=== PATIENT | female | born 1965 | race Caucasian/White ===

== ENCOUNTER 2022-08-22 08:25 | Outpatient (CLI) | payer OTHER, SELFPAY | END 2022-08-22 08:26 | disposition home or self-care (01) | LOC: NFLDREF 08-23 06:14 | PROVIDERS: PCP Family Medicine; Referring Provider Family Medicine; Visit Provider Family Medicine | DX: R03.0 Elevated blood-pressure reading, without diagnosis of hypertension (principal); Z13.6 Encounter for screening for cardiovascular disorders | CPT/HCPCS: 80053; 80061; 82043; 82570 ==

== ENCOUNTER 2022-11-29 09:41 | Outpatient (CLI) | payer OTHER, SELFPAY | END 2022-11-29 09:42 | disposition home or self-care (01) | LOC: NFLDREF 11-30 14:30 | PROVIDERS: PCP Family Medicine; Referring Provider Family Medicine; Visit Provider Nurse Practitioner Family | DX: E78.00 Pure hypercholesterolemia, unspecified (principal); Z79.899 Other long term (current) drug therapy; F41.9 Anxiety disorder, unspecified; F32.9 Major depressive disorder, single episode, unspecified; F42.9 Obsessive-compulsive disorder, unspecified; F32.A Depression, unspecified; F41.0 Panic disorder [episodic paroxysmal anxiety]; G47.00 Insomnia, unspecified; R45.851 Suicidal ideations | CPT/HCPCS: 82306; 84443 ==

== ENCOUNTER 2022-12-27 08:45 | Outpatient (CLI) | payer OTHER, SELFPAY | END 2022-12-27 08:46 | disposition home or self-care (01) | LOC: NFLDREF 18:36 | PROVIDERS: PCP Family Medicine; Referring Provider Family Medicine; Visit Provider Family Medicine | DX: E78.00 Pure hypercholesterolemia, unspecified (principal) | CPT/HCPCS: 80061 ==

== ENCOUNTER 2023-10-04 08:50 | Outpatient (CLI) | payer OTHER, SELFPAY | END 2023-10-04 08:51 | disposition home or self-care (01) | LOC: LKVREF 08:51 | PROVIDERS: PCP Family Medicine; Visit Provider Family Medicine | DX: Z01.818 Encounter for other preprocedural examination (principal) | CPT/HCPCS: 80048 ==

== ENCOUNTER 2024-02-28 12:37 | Outpatient (CLI) | payer OTHER, SELFPAY ==
--- NOTE | 2024-02-28 13:00 | CRLHL7_ITS ---
For Patients: As a result of the Century Cures Act, medical imaging exams and procedure reports are released immediately into your electronic medical record. You may view this report before your referring provider. If you have questions, please contact your health care provider. INDICATION: Abdominal distention. COMPARISON: None. TECHNIQUE: Transvaginal pelvic ultrasound. FINDINGS: The uterus measures 6.1 x 2.7 x 3.9 cm. The endometrial stripe measures 2 mm in thickness with homogeneous echotexture. Trace fluid identified within the endometrial cavity. The right ovary measures 2.5 x 0.9 x 1.1 cm. Normal blood flow to the right ovary. Patient had the left ovary removed. No free fluid identified in the pelvic cul-de-sac. IMPRESSION: 1. Trace fluid identified within the endometrial cavity. 2. Left ovary is absent from previous surgery. 3. Normal trans vaginal pelvic ultrasound otherwise. Dictated by Sunni Wang MD @ 03/02/2024 11:59:12 AM (Electronically Signed)
== END 2024-02-28 12:38 | disposition home or self-care (01) ==
PROVIDERS: Visit Provider Physician Assistant
DX: R14.0 Abdominal distension (gaseous) (principal)
CPT/HCPCS: 76830

== ENCOUNTER 2024-05-25 12:26 | Outpatient (CLI) | payer OTHER, SELFPAY | END 2024-05-25 12:27 | disposition home or self-care (01) | LOC: NFLDREF 12:27 | PROVIDERS: Visit Provider Registered Nurse | DX: Z13.228 Encounter for screening for other metabolic disorders (principal) | CPT/HCPCS: 80048 ==

== ENCOUNTER 2024-05-26 06:06 | Day surgery (SDC) | payer OTHER, SELFPAY ==
[2024-05-26] VITALS (24 sets, daily range): BP systolic 66–138; BP diastolic 40–80; PULSE 48–96; RESP 11–20; TEMP 35.5–37.3; O2SAT 92–99; BMI 25.4
[2024-05-26 06:42] LABS: Hemoglobin* 12.3 gm/dL (12.0-16.0)
[2024-05-26] MEDS: SODIUM CHLORIDE 0.9 % (FLUSH) 10 ML SYRINGE IVF (06:56)
[2024-05-26] MEDS: LACTATED RINGERS 1000 ML 1,000 ML 100 ML IV (06:56)
--- NOTE | 2024-05-26 07:07 | W.PM.H&PU ---
History & Physical Update History & Physical Update H&P Reviewed and patient assessed: No changes noted
--- NOTE | 2024-05-26 07:28 | PM.PROC ---
Procedure Note Date Seen: 05/26/24 Date of procedure: 05/26/24 Will [facility] bill your pro fee for this procedure?: Yes Procedure: Preoperative diagnosis: 59-year-old 1 para 1 with 1. Pelvic organ prolapse who desires surgical treatment. 2. Mixed urinary incontinence Postoperative diagnosis: Same Procedure: Total vaginal hysterectomy, Right salpingo-oophorectomy, anterior and posterior repair. Plummer's culdoplasty. Transobturator, suburethral sling placement. Diagnostic Cystoscopy. Anesthesia: Spinal, Local Surgeon: Ro Marshall MD under water assistant: Yamilka Hernandez MD Second nursing home assistant administrator: CYRIL Soriano EBL: 50 mL IV Fluid: 900 mL Urine output: 250 mL, clear urine at the end of the procedure. Drains: Rubi to gravity: Clear urine at the end of the procedure., Vaginal pack in place Specimen: Uterus with cervix [tubes and ovaries] to pathology Findings: On exam under anesthesia: Uterus is mid position, <8 week size. Prolapse: Grade 3 cystocele, grade 2 uterine prolapse, grade 2 rectocele primarily with in the vaginal canal. The perineal body is well supported. Other: Left tube and ovary were surgically absent. Right tube and ovary appeared normal. Procedure: Shameka was taken to the operating room where general anesthesia was found be adequate. She is placed in the dorsal lithotomy position and an exam under anesthesia performed with the findings stated above. She was then prepped and draped in a sterile manner. A Rubi catheter was placed. A weighted speculum was placed in the posterior aspect of the vaginal introitus. The cervix was grasped with 2 double toothed-toothed tenaculums and the cervix circumferentially injected dilute vasopressin, 20 units diluted in 50 mL of saline. A circumferential incision was made around the cervix with a scalpel. The anterior vaginal mucosa was grasped with an Allis clamp and the anterior cul-de-sac formed with Metzenbaum scissors. The peritoneum was grasped an with toothed forceps and the peritoneum entered sharply with Metzenbaum scissors. This opening was extended with blunt pressure and a Pavithra retractor placed through the opening. The posterior cul-de-sac was entered sharply with Garcia scissors and a long weighted speculum was placed. Pedicles of the hysterectomy were formed using Ginger clamps. All pedicles were Ginger transfixed. The 1st pedicle was formed on the patient's left incorporating the uterosacral ligament. This was divided and Ivan transfixed. These sutures were tagged with a small clamp. The right uterosacral ligament was grasped in the 1st right pedicle that pedicle was divided, Ginger transfixed in the sutures held with a small Nickie clamp. Sequential pedicles were then formed using Ivan clamps, all pedicles were divided sharply and Ginger transfixed. At the level of the cornea at the utero ovarian ligament ligament were cross-clamped with a Ivan clamp and divided. The cornual pedicles were doubly suture ligated: 1st with an 0 Vicryl free tie followed by an 0 Vicryl stick tie in a fore and aft manner. All pedicles were noted to be hemostatic. The right ovary was grasped with a Snyder clamp. The ovary was removed from the infundibulopelvic ligament with the LigaSure dissecting forceps. The right fallopian tube was then grasped with a Snyder clamp and removed from the underlying mesosalpinx with the LigaSure forceps. Excellent hemostasis was noted. A Plummer's culdoplasty was performed. The long weighted speculum was removed and the short weighted speculum replaced in the vaginal introitus. The peritoneum was identified circumferentially and grasped with 2 Allis clamps. The weighted speculum removed. The vaginal cuff was re-approximated using 0 Vicryl sutures in a figure of X manner. The uterosacral pedicles were incorporated into each apex of the vaginal cuff. Excellent hemostasis was noted. Attention was turned to performing the anterior repair. Allis clamp was placed in the midline of the anterior vaginal mucosa approximately 1 cm under the urethral meatus. Two additional Allis clamps were placed 1 just superior to each apex of the vaginal cuff repair. 1% lidocaine with epinephrine was injected between the 2 Allis clamps just above the cuff and in the midline to the Allis that was placed below the urethral meatus. A horizontal incision was then made between the 2 Allis clamps just above the vaginal cuff. Is vaginal mucosa was undermined with the Metzenbaum scissors. The excess mucosa was grasped with a combination of Tenorio and Allis clamps. The underlying fascial tissue was mobilized from the vaginal mucosa using an open Ray-Alina sponge. Two 0 Vicryl interrupted sutures were used to grasp the lateral vaginal fascial tissue and tied together in the midline. The excess vaginal mucosa was then removed and the remaining vertical incision was re-approximated using 3-0 Vicryl in a running locked manner. Excellent hemostasis verified. Attention was turned to performing the posterior repair. An Allis clamp was placed at the apex of the posterior repair in the midline of the vaginal mucosa posteriorly, 2 Allis clamps were placed in the posterior introitus approximately 1 cm within the introitus. 1% lidocaine with epinephrine was instilled between the 2 horizontal clamps and in the midline to the apical clamp. A horizontal incision was made between the 2 most proximal Allis clamps and a horizontal midline incision was made from the apex clamp to the midline horizontal incision. The vaginal mucosa was then undermined with Metzenbaum scissors and the vaginal fascia was mobilized from the mucosa using a Ray-Alina sponge. The lateral vaginal fascia was then reapproximated using 2 0 Vicryl interrupted sutures. The excess mucosal tissue was removed and the remaining incision reapproximated using 3-0 Vicryl in a running locked manner. Hemostasis verified. Attention was turned to performing the suburethral sling placement. The patient was placed in high Ghotra's position for the sling placement. A weighted speculum was placed in the posterior vaginal introitus. A marker was used to place mendez in the groin folds at the level of the clitoris. 1% lidocaine with epinephrine was injected into both the groin fold incision sites and the anterior aspect of the vaginal canal at the mid urethral junction. Two punch incisions were made at each of the groin fold sites. A 2 cm it vertical incision was made anterior aspect of the vaginal canal just below the mid urethral junction. The right Sarah trocar was then advanced through the right groin incision and the right side of the sling was attached to the trocar and the trocar reverse through the incision to pull the sling through. The left trocar was then placed in the left side of the sling then pulled through in a similar manner. The Rubi catheter was briefly removed for diagnostic cystoscopy with the above finding stated. A 9. Cervical dilator was placed between the sling and the vaginal canal and the sling pulled tight. The trocars were then removed using a scissors, the plastic overlying the sling was removed and the sling cut to below the groin fold skin incisions. Exofin adhesive gel was applied to the groin fold incisions. The vaginal incision was repaired using 2-0 Vicryl in a running locked manner. The speculum was removed. A vaginal pack with Premarin cream was placed in the vaginal canal to be removed tomorrow morning by the physician. Sponge, lap and instrument counts were correct x2 at the end of the procedure and the patient was taken to the recovery room in stable condition. Prior to the procedure the patient received: 2g IV Ancef for antibiotic prophylaxis Pathology: specimen obtained, sent to pathology
[2024-05-26] MEDS: CEFAZOLIN 2 GM INJ IVP (07:54)
[2024-05-26] MEDS: LIDOCAINE 1%-EPI 1:100,000 20 ML INFILTRATI ×3 (08:17→09:20)
[2024-05-26] MEDS: 0.9 % SODIUM CHLORIDE 50 ml INJECTION (08:17)
[2024-05-26] MEDS: VASOPRESSIN 20 UNIT/ML INJ INJECTION (08:19)
--- NOTE | 2024-05-26 08:51 | W.ANESCHARGE ---
Anesthesia Charges Start Date/Time Anesthesia Start Date: 05/26/24 Anesthesia Start Time: 07:29 Stop Date/Time Anesthesia Stop Date: 05/26/24 Anesthesia Stop Time: 09:50
[2024-05-26] MEDS: ESTROGENS, CONJUGATED VAGINAL 0.625 MG/G CREAM 1 APPLIC VAGINAL (09:10)
[2024-05-26] MEDS: KETOROLAC 30 MG/ML inj IVP ×3 (09:45→21:46)
[2024-05-26] MEDS: ONDANSETRON 2 MG/ML inj 4 MG IVP (09:57)
[2024-05-26] MEDS: fentaNYL 100 MCG/2 ML inj 50 MCG IVP (10:06)
--- NOTE | 2024-05-26 10:08 | W.ANESCHARGE ---
Anesthesia Charges Start Date/Time Anesthesia Start Date: 05/26/24 Anesthesia Start Time: 07:29 Stop Date/Time Anesthesia Stop Date: 05/26/24 Anesthesia Stop Time: 09:50
--- NOTE | 2024-05-26 10:24 | SUR.PHASEI ---
patient met discharge criteria per anesthesia
[2024-05-26] MEDS: LACTATED RINGERS 1000 ML 1,000 ML 35 ML IV (10:34)
[2024-05-26] MEDS: METOCLOPRAMIDE HCL 5 MG/ML INJ 10 MG IVP (10:39)
[2024-05-26] MEDS: ePHEDrine sulfate 5 MG/ML inj IVP (10:45)
[2024-05-26] MEDS: ACETAMINOPHEN 500 MG TABLET 1000 MG PO ×3 (11:17→23:40)
[2024-05-26] MEDS: HYDROmorphone 0.5 mg/0.5 ml inj IVP ×2 (12:33→15:03)
--- NOTE | 2024-05-26 13:23 | P.GYNPN_ITS ---
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 Continue postop care 2. Advance diet as tolerated. 3. Dr. Yamilka Hernandez is rounding on the patient tomorrow AM. 4. Planning discharge home tomorrow. 5. Vaginal pack in place: Dr. Hernnadez is planning on removing tomorrow. 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 ) FENCE MAKING MACHINE OPERATOR-PN: Obj Exam Physical Exam: Vital signs: Temp Pulse Resp BP Pulse Ox O2 Del Method 96.9 F L 72 14 110/63 98 Room Air 05/26/24 11:08 05/26/24 12:44 05/26/24 11:48 05/26/24 12:44 05/26/24 12:44 05/26/24 11:45 Narrative: General: Pleasant, , well groomed woman in no acute distress. Vital signs: Per electronic medical record Heart: Regular rate and rhythm without gallop, rub or murmur. Chest: Clear to auscultation bilaterally. Abdomen: Soft, nontender, mildly distended. No CVA or flank tenderness. Extremities: No pain or edema FENCE MAKING MACHINE OPERATOR - PN: Obj Data Labs Labs: Laboratory Results - last 24 hr 05/26/24 06:35 Hgb 12.3 Blood Type O Positive Antibody Screen NEGATIVE
[2024-05-26] MEDS: OXYCODONE 5 MG TABLET PO ×3 (13:48→21:46)
[2024-05-26] MEDS: ZOLPIDEM 5 MG TABLET PO (22:18)
[2024-05-27] VITALS (7 sets, daily range): BP systolic 103; BP diastolic 59–65; PULSE 67–86; RESP 16–18; TEMP 37–37.6; O2SAT 96–100
[2024-05-27] MEDS: OXYCODONE 5 MG TABLET PO ×3 (02:02→10:49)
[2024-05-27] MEDS: IBUPROFEN 600 MG TABLET PO ×2 (02:03→08:12)
[2024-05-27] MEDS: ACETAMINOPHEN 500 MG TABLET 1000 MG PO (06:04)
[2024-05-27 06:32] LABS: Hemoglobin* 12.9 gm/dL (12.0-16.0)
--- NOTE | 2024-05-27 07:52 | PM.GYNDS1 ---
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 Indication for surgery: Pelvic organ prolapse, urinary incontinence. Intraoperative findings were notable for: Pelvic organ prolapse. She had an uncomplicated surgery. Postoperative course has been uneventful. Vitals have been stable. She has remained afebrile. Today, on postoperative day 1, she reports the pain is well controlled. She has been able to ambulate Without difficulty. She is tolerating regular diet. She is passing flatus. Rubi catheter has been removed, and she is voiding without difficulty. 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 GENERAL APPEARANCE: Alert, cooperative female in no acute distress. MOOD & AFFECT: Normal. HEART: Regular rate and rhythm without murmurs. LUNGS: Lungs are clear to auscultation bilaterally. No crackles, wheezes, or rhonchi. ABDOMEN: Soft, non-distended and nontender. : Vaginal packing in place, not soaked. Rubi catheter in place clear urine and normal output. EXTREMITIES: Compression stockings in place. NEURO: Intact. POTABLE WATER TREATMENT OPERATOR - DS: Data Data Completed and Pending Labs on day of discharge: Labs from last 24 hours 05/27/24 06:20 Hgb 12.9 Procedures Procedures: Procedures Operation Date: 05/26/24 07:30 Actual Procedure Side Surgeon p Total Vaginal Hysterectomy, Right salpingo-oopherectomy, Anterior, Posterior Repair, Trans obturator Suburethral Sling Placement, diagnostic cystoscopy Ro Marshall MD Discharge Plan Discharge Disposition: Home w/ Parent or Adult Discharging Surgeon: Yamilka Centeno Follow-Up Appointment: With Dr. Marshall in 2 weeks and 6 weeks postop Prescriptions: New docusate sodium 100 mg Capsule 100 mg PO BID PRN (Reason: Constipation) Qty: 100 0RF ibuprofen 600 mg Tablet 600 mg PO Q6H Qty: 30 0RF oxycodone 5 mg Tablet 5 mg PO 3XD PRN (Reason: Moderate Pain) Qty: 21 0RF Continued glucosamine-chondroitin 900 mg tablet PO Airborne Immune Support 250-8.875 mg tablet,chewable PO valacyclovir [Valtrex] 1 gram tablet 2,000 mg PO BID Qty: 16 3RF Activity Level: Activity as Tolerated, No Weight Bearing and Other Discharge Diet: Regular Patient Instructions: Bladder Sling for Women (DC), Vaginal Hysterectomy (DC) Additional Instructions: ACTIVITY RESTRICTIONS: Nothing vaginally for 6 weeks: no tampons/intercourse No driving while taking narcotic pain medication during the day. 1-2 weeks. Lifting restriction: Maximum of 20 pounds for 4 weeks. High impact or core exercises: 4 weeks. Submerge the incisions in water (bath/pool/chahal): 2 weeks. Off of work/school for a minimum of 4 weeks NO RESTRICTIONS for: Walking Going up/down stairs Showering Being the passenger in a motor vehicle SYMPTOMS TO REPORT TO YOUR DOCTOR: Bleeding that is red, like a moderate period Passing clots larger than the size of a golf ball Pain not relieved by prescribed medication Fever above 100.4 degrees Fahrenheit A foul vaginal odor Decrease in urination or painful, frequent urinating Chest pain Shortness of breath Tenderness or pain with redness and/swelling in the calf(s) of your leg Follow-up Appointments: 1. [facility] 2-3 weeks for an incision check. 2. A 6 week postop visit to verify that the vaginal cuff is well-healed. For Pain: Alternate Ibuprofen 600mg every 3 hours with ES Tylenol (2 tablet/capsules) 1,000mg. Add oxycodone if needed for additional pain control. Follow-up: Ro Marshall MD [Staff Physician] - Provider,Not a Local [Primary Care Provider] - Discharge Orders: Discharge Order (Routine); Ordered 05/27/24 Ordered By: Yamilka Centeno
[2024-05-27] MEDS: DOCUSATE SODIUM 100 MG CAPSULE PO (08:18)
== END 2024-05-27 11:05 | disposition home or self-care (01) ==
LOC: OR 06:08 → OB 06:11
PROVIDERS: Visit Provider Obstetrics & Gynecology
PROC: (CPT 57260; principal; 2024-05-26 07:30)
DX: N81.3 Complete uterovaginal prolapse (principal); N39.46 Mixed incontinence; Z90.79 Acquired absence of other genital organ(s); Z90.721 Acquired absence of ovaries, unilateral
CPT/HCPCS: 58263; 57288; 00940; 00944; 36415; 85018; 86850; 86900; 86901; 88307; 88342; A4314; A9270; C1771; J0171; J0330; J0690; J1100; J1171; J1885; J2250; J2371; J2405; J2704; J2765; J3010; J3490; J7120

== ENCOUNTER 2024-06-04 11:06 | Outpatient (CLI) | payer OTHER, SELFPAY ==
[2024-06-05 05:20] LABS: Bacterial Vaginosis* Negative (Negative); Candida glab/krus NOT DETECTED (No Detected); Candida species NOT DETECTED (No Detected); Trichomonas vaginalis NOT DETECTED (No Detected)
== END 2024-06-04 11:07 | disposition home or self-care (01) ==
PROVIDERS: Visit Provider Obstetrics & Gynecology
DX: N89.8 Other specified noninflammatory disorders of vagina (principal); T81.40XA Infection following a procedure, unspecified, initial encounter
CPT/HCPCS: 81513; 87070; 87086; 87481; 87661

== ENCOUNTER 2024-06-12 09:41 | Outpatient (CLI) | payer OTHER, SELFPAY ==
[2024-06-12 11:59] LABS: Bacterial Vaginosis* Negative (Negative); Candida glab/krus NOT DETECTED (No Detected); Candida species NOT DETECTED (No Detected); Trichomonas vaginalis NOT DETECTED (No Detected)
== END 2024-06-12 09:42 | disposition home or self-care (01) ==
PROVIDERS: Visit Provider Obstetrics & Gynecology
DX: N89.8 Other specified noninflammatory disorders of vagina (principal)
CPT/HCPCS: 81513; 87070; 87186; 87481; 87661

== ENCOUNTER 2024-06-25 16:08 | Outpatient (CLI) | payer OTHER, SELFPAY ==
[2024-06-25 19:12] LABS: Bacterial Vaginosis* Negative (Negative); Candida glab/krus NOT DETECTED (No Detected); Candida species NOT DETECTED (No Detected); Trichomonas vaginalis NOT DETECTED (No Detected)
== END 2024-06-25 16:09 | disposition home or self-care (01) ==
LOC: NFLDREF 16:08
PROVIDERS: Visit Provider Obstetrics & Gynecology
DX: N89.8 Other specified noninflammatory disorders of vagina (principal)
CPT/HCPCS: 81513; 87481; 87661

== ENCOUNTER 2024-07-08 09:48 | Outpatient (CLI) | payer OTHER, SELFPAY ==
[2024-07-08 13:43] LABS: Bacterial Vaginosis* Negative (Negative); Candida glab/krus NOT DETECTED (No Detected); Candida species NOT DETECTED (No Detected); Trichomonas vaginalis NOT DETECTED (No Detected)
== END 2024-07-08 09:49 | disposition home or self-care (01) ==
LOC: FRMREF 09:48
PROVIDERS: Visit Provider Obstetrics & Gynecology
DX: N89.8 Other specified noninflammatory disorders of vagina (principal)
CPT/HCPCS: 81513; 87481; 87661